=== PATIENT | male | born 1955 | race Caucasian/White ===

== ENCOUNTER → 2016-08-25 | Outpatient (REF) | payer BC ==
[2016-08-25 10:17] LABS: ALBUMIN 3.9 GM/DL (3.2-5.2); ALKALINE PHOSPHATASE 78 U/L (45-117); ALT/SGPT 40 U/L (12-78); ANION GAP 8 MEQ/L (8-16); AST/SGOT 27 U/L (15-37); BILIRUBIN,TOTAL 0.4 MG/DL (0.2-1.0); BLOOD UREA NITROGEN 21 MG/DL (7-18); CALCIUM LEVEL 8.7 MG/DL (8.5-10.1); CARBON DIOXIDE LEVEL 26 MEQ/L (21-32); CHLORIDE LEVEL 103 MEQ/L (98-107); CHOLESTEROL LEVEL 125 MG/DL (<200); CREATININE FOR GFR 0.73 MG/DL (0.70-1.30); GLOMERULAR FILTRATION RATE > 60.0 (>56); GLUCOSE, FASTING 173 MG/DL (70-105); POTASSIUM SERUM 4.3 MEQ/L (3.5-5.1); SODIUM LEVEL 137 MEQ/L (136-145); TOTAL PROTEIN 6.9 GM/DL (6.4-8.2); TRIGLYCERIDES LEVEL 122 MG/DL (<150)
== END ==
LOC: M SFHCCLAY 08:42
PROVIDERS: ATTEND Nurse Practitioner
DX: E11.8 Type 2 diabetes mellitus with unspecified complications (principal); Z12.5 Encounter for screening for malignant neoplasm of prostate

== ENCOUNTER → 2016-08-31 | Outpatient (REF) | payer BC | LOC: M LAB REF 16:37 | PROVIDERS: ATTEND Surgery | DX: D48.5 Neoplasm of uncertain behavior of skin (principal) ==

== ENCOUNTER → 2017-03-02 | Outpatient (REF) | payer BC ==
[2017-03-02 17:17] LABS: ALBUMIN 3.8 GM/DL (3.2-5.2); ALBUMIN/GLOBULIN RATIO 1.15 (1.00-1.93); ALKALINE PHOSPHATASE 73 U/L (45-117); ALT/SGPT 35 U/L (12-78); ANION GAP 5 MEQ/L (8-16); AST/SGOT 29 U/L (7-37); BILIRUBIN,TOTAL 0.6 MG/DL (0.2-1.0); BLOOD UREA NITROGEN 18 MG/DL (7-18); CALCIUM LEVEL 8.5 MG/DL (8.5-10.1); CARBON DIOXIDE LEVEL 27 MEQ/L (21-32); CHLORIDE LEVEL 108 MEQ/L (98-107); CHOLESTEROL LEVEL 126 MG/DL (<200); CREATININE FOR GFR 0.69 MG/DL (0.70-1.30); FREE T4 0.84 NG/DL (0.76-1.46); GLOMERULAR FILTRATION RATE > 60.0 (>56); GLUCOSE, FASTING 104 MG/DL (70-105); POTASSIUM SERUM 4.2 MEQ/L (3.5-5.1); SODIUM LEVEL 140 MEQ/L (136-145); TOTAL PROTEIN 7.1 GM/DL (6.4-8.2); TRIGLYCERIDES LEVEL 100 MG/DL (<150)
== END ==
LOC: M SFHCCAPE 07:12
PROVIDERS: ATTEND Physician Assistant
DX: R94.6 Abnormal results of thyroid function studies (principal); E11.8 Type 2 diabetes mellitus with unspecified complications

== ENCOUNTER → 2018-02-11 | Outpatient (CLI) | payer BC | LOC: M SLEEP 19:28 | DX: G47.33 Obstructive sleep apnea (adult) (pediatric) (principal); G47.61 Periodic limb movement disorder | CPT/HCPCS: 95811 ==

== ENCOUNTER 2018-03-26 20:06 | Emergency (ER) | payer BC ==
[~2018-03-26] VITALS: Ht 172.7 cm; Wt 113.6 kg
[2018-03-26] MEDS ORDERED: LOSA50TA88 (20:24)
[2018-03-26] MEDS ORDERED: SIMV40TA2 (20:24)
[2018-03-26] MEDS ORDERED: FARX1TAB3 (20:24)
[2018-03-26] MEDS ORDERED: HUMA100I5 (20:24)
[2018-03-26] MEDS ORDERED: NAPR-885 PO (20:24)
[2018-03-26] MEDS ORDERED: TOUJ1.2I (20:24)
[2018-03-26] MEDS ORDERED: ZYRTTAB8 PO (20:24)
[2018-03-26] MEDS ORDERED: METF10004 (20:24)
[2018-03-26] MEDS ORDERED: CITA20TA4 (20:24)
[2018-03-26] MEDS ORDERED: BISO5TAB5 (20:24)
[2018-03-26] MEDS ORDERED: ELIQ5TAB (20:24)
[2018-03-26 20:54] LABS: BASO # 0.1 10^3/uL (0.0-0.2); BASO % 0.5 % (0.0-1.0); EOS # 0.2 10^3/uL (0.0-0.50); EOS % 1.9 % (0.0-3.0); HEMATOCRIT 41.2 % (42.0-52.0); HEMOGLOBIN 13.6 g/dl (13.5-17.5); LYMPH # 2.2 10^3/uL (1.5-4.5); LYMPH % 23.9 % (24.0-44.0); MEAN CORPUSCULAR HEMOGLOBIN 27.6 pg (27.0-33.0); MEAN CORPUSCULAR VOLUME 83.7 fl (80.0-96.0); MONO # 0.7 10^3/uL (0.0-0.8); MONO % 7.3 % (0.0-5.0); NEUTROPHILS # 6.1 10^3/uL (1.8-7.7); NEUTROPHILS % 65.9 % (36.0-66.0); PLATELET COUNT, AUTOMATED 284 10^3/uL (150-450); RED BLOOD COUNT 4.92 10^6/uL (4.30-6.10); WHITE BLOOD COUNT 9.3 10^3/uL (4.0-10.0)
[2018-03-26 21:12] LABS: BLOOD UREA NITROGEN 25 MG/DL (7-18); CALCIUM LEVEL 8.6 MG/DL (8.8-10.2); CARBON DIOXIDE LEVEL 24 MEQ/L (21-32); CHLORIDE LEVEL 108 MEQ/L (98-107); CPK CREATINE PHOSPHOKINASE 206 U/L (39-308); CREATININE FOR GFR 0.85 MG/DL (0.70-1.30); FREE T4 0.91 NG/DL (0.76-1.46); GLOMERULAR FILTRATION RATE > 60.0 (>49); GLUCOSE, FASTING 168 MG/DL (70-100); MAGNESIUM LEVEL 2.1 MG/DL (1.8-2.4); MB/CK RELATIVE INDEX 1.41 (< OR =4); POTASSIUM SERUM 4.1 MEQ/L (3.5-5.1); SODIUM LEVEL 141 MEQ/L (136-145); TROPONIN I 0.02 NG/ML (< 0.10)
[2018-03-26 22:45] VITALS: BP 121/69
--- NOTE | 2018-03-27 08:44 | ECGEPIP ---
Stationary ECG Study [facility] - ED Test Date: 2018-03-26 Pat Name: BRYN TERRAZAS Department: Room: - Gender: M Senior Accounting Specialist: william : 1955 Requested By: JOE Lombardi Order Number: [id number] Reading MD: Laisha Stacy Measurements Intervals [place] Rate: 86 P: 1 [place]: 138 QRS: 0 QRSD: 88 T: 10 QT: 334 QTc: 400 Interpretive Statements SINUS RHYTHM MODERATE VOLTAGE CRITERIA FOR LVH, CONSIDER NORMAL VARIANT NSTTW ABNORMALITY Electronically Signed On 03-27-2018 8:43:57 EST by Laisha Stacy
== END 2018-03-26 23:05 | disposition home or self-care (01) ==
LOC: M ED 20:06
DX: R00.2 Palpitations (principal); I48.91 Unspecified atrial fibrillation; Z88.0 Allergy status to penicillin; Z88.8 Allergy status to other drugs, medicaments and biological substances; Z79.899 Other long term (current) drug therapy; Z79.01 Long term (current) use of anticoagulants; Z79.4 Long term (current) use of insulin

== ENCOUNTER 2018-06-02 07:39 | Day surgery (SDC) | payer BC ==
[~2018-06-02] VITALS: Ht 172.7 cm; Wt 107.0 kg
[~2018-06-02 07:39] MED LIST: BISO5TAB5; CITA20TA4; ELIQ5TAB; FARX1TAB3; HUMA100I5; LOSA50TA88; METF10004; NAPR-885 PO; NS 1,000 ML IV ONE; PROPOFOL 200 MG/20 ML VIAL As Ordered ONE; SIMV40TA2; TOUJ1.2I; ZYRTTAB8 PO
[2018-06-02 09:40] VITALS: BP 133/75
--- NOTE | 2018-06-02 10:56 | ROOR ---
Patient Name: Wilber Fofana Procedure Date: 06/02/2018 8:55 AM Date of : 1955 Age: 62 Room: [facility] Gender: Male Note Status: Finalized Procedure: Colonoscopy Indications: Screening in patient at increased risk: Family history of 1st-degree relative with colorectal cancer Providers: Mo Pool Jr, MD Referring MD: JOHNATHAN RANDHAWA JR, MD Requesting Provider: Medicines: Propofol per Anesthesia Complications: No immediate complications. Procedure: Pre-Anesthesia Assessment: - Prior to the procedure, a History and Physical was performed, and patient medications and allergies were reviewed. The patient is competent. The risks and benefits of the procedure and the sedation options and risks were discussed with the patient. All questions were answered and informed consent was obtained. Patient identification and proposed procedure were verified by the physician and the nurse in the pre-procedure area and in the procedure room. Mental Status Examination: alert and oriented. Airway Examination: normal oropharyngeal airway and neck mobility. Respiratory Examination: clear to auscultation. CV Examination: normal. ASA Grade Assessment: II - A patient with mild systemic disease. After reviewing the risks and benefits, the patient was deemed in satisfactory condition to undergo the procedure. The anesthesia plan was to use moderate sedation / analgesia (conscious sedation). Immediately prior to administration of medications, the patient was re-assessed for adequacy to receive sedatives. The heart rate, respiratory rate, oxygen saturations, blood pressure, adequacy of pulmonary ventilation, and response to care were monitored throughout the procedure. The physical status of the patient was re-assessed after the procedure. The Colonoscope was introduced through the anus and advanced to the cecum, identified by appendiceal orifice and ileocecal valve. The colonoscopy was performed without difficulty. The patient tolerated the procedure well. The quality of the bowel preparation was adequate. Findings: The rectum, descending colon, transverse colon, cecum, appendiceal orifice and ileocecal valve appeared normal. Five polyps were found in the recto-sigmoid colon, sigmoid colon and ascending colon. The polyps were small in size. These polyps were removed with a cold snare. Resection and retrieval were complete. Impression: - The rectum, descending colon, transverse colon, cecum, appendiceal orifice and ileocecal valve are normal. - Five small polyps at the recto-sigmoid colon, in the sigmoid colon and in the ascending colon, removed with a cold snare. Resected and retrieved. Recommendation: - Discharge patient to home (ambulatory). - Repeat colonoscopy in 5 years for surveillance. Mo Pool MD Mo Pool Jr, MD 06/02/2018 9:20:16 AM This report has been signed electronically. Number of Addenda: 0 Note Initiated On: 06/02/2018 8:55 AM Estimated Blood Loss: Estimated blood loss: none.
== END 2018-06-02 09:49 | disposition home or self-care (01) ==
LOC: M OPP 07:39
PROVIDERS: ATTEND Surgery
DX: Z12.11 Encounter for screening for malignant neoplasm of colon (principal); Z80.0 Family history of malignant neoplasm of digestive organs; D12.7 Benign neoplasm of rectosigmoid junction; D12.5 Benign neoplasm of sigmoid colon; D12.2 Benign neoplasm of ascending colon; I48.91 Unspecified atrial fibrillation; G47.30 Sleep apnea, unspecified; Z79.899 Other long term (current) drug therapy; Z79.4 Long term (current) use of insulin; Z88.0 Allergy status to penicillin; Z88.8 Allergy status to other drugs, medicaments and biological substances

== ENCOUNTER → 2018-12-28 | Outpatient (REF) | payer BC ==
[~2018-12-28] MED LIST changes: -BISO5TAB5; +BISO5TAB9; -CITA20TA4; +CITA20TA6; -NS 1,000 ML IV ONE; -PROPOFOL 200 MG/20 ML VIAL As Ordered ONE
[2018-12-28 12:35] LABS: HEMATOCRIT 44.7 % (42.0-52.0)
[2018-12-28 13:14] LABS: FERRITIN 199 NG/ML (26-388); IRON (FE) 145 UG/DL (65-175); PERCENT SATURATION 45.2 % (19.7-50.0); TOTAL IRON BINDING CAPACITY 321 UG/DL (250-450)
[2018-12-28 13:30] LABS: HEPATITIS B SURFACE ANTIGEN NEGATIVE (NEGATIVE)
[2018-12-28 13:57] LABS: HEPATITIS C VIRUS ABY INDEX 0.2 INDEX (<0.8)
[2018-12-28 13:58] LABS: HEPATITIS B CORE ANTIBODY IGM NEGATIVE (NEGATIVE)
[2018-12-28 14:00] LABS: HEPATITIS A ANTIBODY IGM NEGATIVE (NEGATIVE)
== END ==
LOC: M LAB REF 12:09
PROVIDERS: ATTEND Nurse Practitioner Adult Health
DX: R79.89 Other specified abnormal findings of blood chemistry (principal)

== ENCOUNTER → 2020-02-21 | Outpatient (REF) | payer OTHER ==
[~2020-02-21] MED LIST changes: +BISO5TAB14; -BISO5TAB9; -SIMV40TA2; +SIMV40TA20
== END ==
LOC: M LAB REF 11:49
PROVIDERS: ATTEND Nurse Practitioner Adult Health
DX: L02.212 Cutaneous abscess of back [any part, except buttock and flank] (principal)

== ENCOUNTER 2021-01-01 12:20 | Outpatient (CLI) | payer BC, OTHER ==
[~2021-01-01] VITALS: Ht 172.7 cm; Wt 113.4 kg
[~2021-01-01 12:20] MED LIST changes: +ALBUTEROL 90 MCG/ACT 8GM HFA INHALER INH PRN; +ALBUTEROL SULFATE 2.5 MG/0.5 ML INH NEB SOLN INH PRN; +EPINEPHrine INJ 1 MG/ML 1ML AMP IM PRN; +NS 1,000 ML IV SCH; +diphenhydrAMINE 50MG/ML VIAL (J1200) IV PRN; +methylPREDNISolone 125MG 2ML VIAL IV PRN
[2021-01-01 12:50] VITALS: BP 148/69
[2021-01-01 13:27] VITALS: BP 148/69
[2021-01-01 13:57] VITALS: BP 158/67
[2021-01-01] MEDS ORDERED: diphenhydrAMINE 25MG CAP PO ONE (14:00)
[2021-01-01] MEDS ORDERED: BAMLANIVIMAB 700 MG, ETESEVIMAB 1,400 MG in NS 250 ML IV ONE (14:00)
[2021-01-01] MEDS ORDERED: ACETAMINOPHEN TAB 650MG DOSE (2X325MG) PO ONE (14:00)
[2021-01-01] MEDS ORDERED: diphenhydrAMINE 50MG CAP PO ONE (14:00)
[2021-01-01 14:27] VITALS: BP 163/71
[2021-01-01 15:40] VITALS: BP 152/68
== END 2021-01-01 15:40 | disposition home or self-care (01) ==
LOC: M OPCLI4PR 12:20
PROVIDERS: ATTEND Internal Medicine
DX: U07.1 COVID-19 (principal); Z88.0 Allergy status to penicillin; Z88.1 Allergy status to other antibiotic agents

== ENCOUNTER 2021-03-04 09:33 | Emergency (ER) | payer BC ==
[~2021-03-04] VITALS: Ht 172.7 cm; Wt 113.6 kg
[~2021-03-04 09:33] MED LIST changes: -ALBUTEROL 90 MCG/ACT 8GM HFA INHALER INH PRN; -ALBUTEROL SULFATE 2.5 MG/0.5 ML INH NEB SOLN INH PRN; -EPINEPHrine INJ 1 MG/ML 1ML AMP IM PRN; -NS 1,000 ML IV SCH; -diphenhydrAMINE 50MG/ML VIAL (J1200) IV PRN; -methylPREDNISolone 125MG 2ML VIAL IV PRN
[2021-03-04] MEDS ORDERED: OZEM2INJ SC (10:20)
[2021-03-04] MEDS ORDERED: DIGOXIN INJ 0.5 MG/2 ML AMP (J1160) IV ONE (10:40)
[2021-03-04 10:57] LABS: HEMOGLOBIN 13.8 g/dl (13.5-17.5); MEAN CORPUSCULAR HEMOGLOBIN 26.6 pg (27.0-33.0); MEAN CORPUSCULAR HGB CONC 31.4 g/dl (32.0-36.5); MEAN CORPUSCULAR VOLUME 84.9 fl (80.0-96.0); PLATELET COUNT, AUTOMATED 230 10^3/uL (150-450); RED BLOOD COUNT 5.18 10^6/uL (4.30-6.10); WHITE BLOOD COUNT 10.6 10^3/uL (4.0-10.0)
[2021-03-04 11:08] LABS: BLOOD UREA NITROGEN 23 MG/DL (7-18); CARBON DIOXIDE LEVEL 26 MEQ/L (21-32); CHLORIDE LEVEL 107 MEQ/L (98-107); CREATININE FOR GFR 1.08 MG/DL (0.70-1.30); GLOMERULAR FILTRATION RATE > 60.0 (>49); GLUCOSE, FASTING 227 MG/DL (70-100); POTASSIUM SERUM 4.8 MEQ/L (3.5-5.1); SODIUM LEVEL 139 MEQ/L (136-145)
[2021-03-04] MEDS ORDERED: ISOVUE-370 76% 100ML VIAL As Ordered ONE (11:37)
--- NOTE | 2021-03-04 11:56 | REP ---
INDICATION: recent COVID, r/o PE COMPARISON: None. TECHNIQUE: Axial contrast enhanced images from the thoracic inlet to the upper abdomen using pulmonary embolus technique with multiplanar re-formations. 75 ml Isovue 370 intravenous contrast material administered without complication. This CT examination was performed using the following dose reduction techniques: Automated exposure control, adjustment of mA and/or kv according to the patient's size, and use of iterative reconstruction technique. FINDINGS: Satisfactory enhancement of the pulmonary vasculature is achieved and no filling defects are identified to suggest pulmonary embolus. Further evaluation of the mediastinum demonstrates mild atherosclerotic changes to the thoracic aorta and coronary arteries without aortic aneurysm or dissection. No cardiomegaly or pericardial effusion. The lung morel demonstrate minimal scattered chronic changes and very subtle dependent changes. No consolidation. No effusion. Calcified right hilar lymph node suggest prior granulomatous disease. No acute adenopathy. Tracheobronchial tree is patent. Surrounding musculoskeletal structures demonstrate age-related degenerative changes. IMPRESSION: 1. No evidence for pulmonary embolus. 2. Minimal chronic changes. 3. No acute mediastinal or pleuroparenchymal process appreciated. <Electronically signed by Keith Flores > 03/04/21 1628
[2021-03-04 14:15] VITALS: BP 138/70
--- NOTE | 2021-03-05 16:00 | ECGEPIP ---
[facility] - ED Test Date: 2021-03-04 Pat Name: BRYN TERRAZAS Department: Room: - Gender: Male School Supervisor: DEJUAN : 1955 Requested By: Fercho Mike Order Number: [id number] Reading MD: Surjit Gómez Measurements Intervals [place] Rate: 144 P: [place]: QRS: 3 QRSD: 74 T: -9 QT: 294 QTc: 455 Interpretive Statements Supraventricular tachycardia Minimal voltage criteria for LVH, may be normal variant Similar to tracing done 02-20-15 Electronically Signed on 03-05-2021 16:00:19 EST by Surjit Gómez
== END 2021-03-04 14:21 | disposition home or self-care (01) ==
LOC: M ED 09:33
DX: I48.0 Paroxysmal atrial fibrillation (principal); E11.9 Type 2 diabetes mellitus without complications; I10 Essential (primary) hypertension; E78.5 Hyperlipidemia, unspecified; F41.9 Anxiety disorder, unspecified; G47.33 Obstructive sleep apnea (adult) (pediatric); Z99.89 Dependence on other enabling machines and devices; Z79.899 Other long term (current) drug therapy; Z79.4 Long term (current) use of insulin; Z79.01 Long term (current) use of anticoagulants; Z88.0 Allergy status to penicillin; Z88.8 Allergy status to other drugs, medicaments and biological substances
CPT/HCPCS: 71275; 80048; 84443; 84484; 85027; 93005; 93041; 94760; 96374; 99285; J1160; Q9967

== ENCOUNTER → 2021-10-06 | Outpatient (CLI) | payer BC ==
[~2021-10-06] MED LIST changes: +LOSA50TA28; -LOSA50TA88; +OZEM2INJ SC
[2021-10-06 10:54] LABS: BLOOD UREA NITROGEN 17 MG/DL (7-18); CALCIUM LEVEL 8.9 MG/DL (8.8-10.2); CARBON DIOXIDE LEVEL 25 MEQ/L (21-32); CHLORIDE LEVEL 107 MEQ/L (98-107); CREATININE FOR GFR 0.83 MG/DL (0.70-1.30); GLOMERULAR FILTRATION RATE > 60.0 (>49); GLUCOSE, FASTING 186 MG/DL (70-100); POTASSIUM SERUM 4.4 MEQ/L (3.5-5.1); SODIUM LEVEL 138 MEQ/L (136-145)
== END ==
LOC: M WUC 08:22
PROVIDERS: ATTEND Internal Medicine Cardiovascular Disease
DX: I48.0 Paroxysmal atrial fibrillation (principal)

== ENCOUNTER → 2022-01-29 | Outpatient (REF) | payer BC | LOC: M LAB REF 12:21 | PROVIDERS: ATTEND Nurse Practitioner Adult Health | DX: D64.9 Anemia, unspecified (principal) ==

== ENCOUNTER → 2022-02-13 | Outpatient (CLI) | payer BC ==
[2022-02-13 17:36] LABS: BASO # 0.1 10^3/uL (0.0-0.2); BASO % 0.6 % (0.0-1.0); EOS # 0.2 10^3/uL (0.0-0.5); EOS % 2.1 % (0.0-3.0); HEMATOCRIT 31.2 % (42.0-52.0); LYMPH # 1.7 10^3/uL (1.5-5.0); LYMPH % 21.3 % (24.0-44.0); MEAN CORPUSCULAR HEMOGLOBIN 22.4 pg (27.0-33.0); MEAN CORPUSCULAR HGB CONC 28.8 g/dl (32.0-36.5); MEAN CORPUSCULAR VOLUME 77.8 fl (80.0-96.0); MONO # 0.7 10^3/uL (0.0-0.8); MONO % 9.6 % (2.0-8.0); NEUTROPHILS # 5.1 10^3/uL (1.5-8.5); NEUTROPHILS % 66.1 % (36.0-66.0); PLATELET COUNT, AUTOMATED 229 10^3/uL (150-450); RED BLOOD COUNT 4.01 10^6/uL (4.30-6.10); WHITE BLOOD COUNT 7.7 10^3/uL (4.0-10.0)
[2022-02-13 19:28] LABS: IRON (FE) 21 UG/DL (65-175)
[2022-02-13 19:29] LABS: PERCENT SATURATION 4.6 % (19.7-50.0); TOTAL IRON BINDING CAPACITY 459 UG/DL (250-425)
[2022-02-13 19:30] LABS: ALBUMIN 3.8 G/DL (3.2-5.2); ALKALINE PHOSPHATASE 71 U/L (46-116); ALT/SGPT 45 U/L (7.0-40); AST/SGOT 47 U/L (<34); BILIRUBIN,TOTAL 0.3 MG/DL (0.3-1.2); BLOOD UREA NITROGEN 19 MG/DL (9-23); CALCIUM LEVEL 8.8 MG/DL (8.3-10.6); CARBON DIOXIDE LEVEL 25 MMOL/L (20-31); CHLORIDE LEVEL 105 MMOL/L (98-107); FERRITIN 5.5 NG/ML (10.5-307.3); FOLATE 13.01 NG/ML (>5.4); GLOMERULAR FILTRATION RATE > 60.0 (>49); GLUCOSE, FASTING 159 MG/DL (74-106); POTASSIUM SERUM 4.2 MMOL/L (3.5-5.1); SODIUM LEVEL 139 MMOL/L (136-145); THYROID STIMULATING HORMONE 2.442 uIU/ML (0.55-4.78); TOTAL PROTEIN 6.9 G/DL (5.7-8.2); VITAMIN B12 LEVEL 469 PG/ML (211-911)
[2022-02-13 20:40] LABS: FREE T4 0.81 NG/DL (0.89-1.76)
== END ==
LOC: M WUC 14:55
PROVIDERS: ATTEND Physician Assistant
DX: I10 Essential (primary) hypertension (principal); R53.83 Other fatigue

== ENCOUNTER 2022-02-28 09:45 | Emergency (ER) | payer BC ==
[~2022-02-28] VITALS: Ht 172.7 cm; Wt 111.6 kg
[~2022-02-28 09:45] MED LIST changes: -HUMA100I5; +HUMA100I5 SC; -TOUJ1.2I; +TOUJ1.2I SC
[2022-02-28] MEDS ORDERED: NS 500 ML IV ONE (10:10)
[2022-02-28] MEDS ORDERED: DIGOXIN INJ 0.5 MG/2 ML AMP IV STA (10:16)
[2022-02-28 10:29] LABS: BASO # 0.1 10^3/uL (0.0-0.2); BASO % 0.8 % (0.0-1.0); EOS # 0.1 10^3/uL (0.0-0.5); EOS % 1.3 % (0.0-3.0); HEMATOCRIT 34.4 % (42.0-52.0); HEMOGLOBIN 9.8 g/dl (13.5-17.5); LYMPH # 1.4 10^3/uL (1.5-5.0); LYMPH % 14.6 % (24.0-44.0); MEAN CORPUSCULAR HEMOGLOBIN 22.6 pg (27.0-33.0); MEAN CORPUSCULAR HGB CONC 28.5 g/dl (32.0-36.5); MEAN CORPUSCULAR VOLUME 79.4 fl (80.0-96.0); MONO # 0.6 10^3/uL (0.0-0.8); MONO % 6.4 % (2.0-8.0); NEUTROPHILS # 7.1 10^3/uL (1.5-8.5); NEUTROPHILS % 76.4 % (36.0-66.0); PLATELET COUNT, AUTOMATED 231 10^3/uL (150-450); RED BLOOD COUNT 4.33 10^6/uL (4.30-6.10); WHITE BLOOD COUNT 9.3 10^3/uL (4.0-10.0)
[2022-02-28 10:39] LABS: INR 1.18; PROTHROMBIN TIME 15.3 SECONDS (12.5-14.5)
[2022-02-28 10:40] LABS: CK-MB VALUE MASS 1.6 NG/ML (<3.6); LIPASE 32 U/L (12-53); PARTIAL THROMBOPLASTIN TIME 29.9 SECONDS (24.8-34.2)
[2022-02-28 10:42] LABS: ALBUMIN 3.6 G/DL (3.2-5.2); ALKALINE PHOSPHATASE 80 U/L (46-116); ALT/SGPT 44 U/L (7.0-40); AST/SGOT 48 U/L (<34); BILIRUBIN,DIRECT 0.2 MG/DL (<0.4); BILIRUBIN,TOTAL 0.5 MG/DL (0.3-1.2); BLOOD UREA NITROGEN 18 MG/DL (9-23); CALCIUM LEVEL 8.3 MG/DL (8.3-10.6); CARBON DIOXIDE LEVEL 20 MMOL/L (20-31); CHLORIDE LEVEL 107 MMOL/L (98-107); CPK CREATINE PHOSPHOKINASE 207 U/L (46-171); CREATININE FOR GFR 0.88 MG/DL (0.70-1.30); GLOMERULAR FILTRATION RATE > 60.0 (>49); GLUCOSE, FASTING 204 MG/DL (74-106); MB/CK RELATIVE INDEX 0.77 (< OR =4); POTASSIUM SERUM 4.6 MMOL/L (3.5-5.1); SODIUM LEVEL 138 MMOL/L (136-145); TOTAL PROTEIN 7.1 G/DL (5.7-8.2)
[2022-02-28 10:43] LABS: FREE T4 0.82 NG/DL (0.89-1.76); THYROID STIMULATING HORMONE 3.363 uIU/ML (0.55-4.78)
[2022-02-28 10:50] LABS: RSV AMPLIFICATION NEGATIVE (NEGATIVE)
[2022-02-28] MEDS ORDERED: IRON65TA2 PO (10:59)
[2022-02-28] MEDS ORDERED: OMEP-173 PO (10:59)
[2022-02-28 11:33] LABS: CK-MB VALUE MASS 1.2 NG/ML (<3.6)
[2022-02-28 11:34] LABS: MB/CK RELATIVE INDEX 0.65 (< OR =4)
[2022-02-28 12:45] VITALS: BP 146/71
== END 2022-02-28 13:14 | disposition home or self-care (01) ==
LOC: M ED 09:45
DX: I48.91 Unspecified atrial fibrillation (principal); D64.9 Anemia, unspecified; Z88.0 Allergy status to penicillin; Z88.1 Allergy status to other antibiotic agents; Z88.8 Allergy status to other drugs, medicaments and biological substances; Z87.891 Personal history of nicotine dependence; Z79.01 Long term (current) use of anticoagulants; Z79.899 Other long term (current) drug therapy
CPT/HCPCS: 71045; 80048; 80076; 82550; 82553; 83690; 84439; 84443; 84484; 85025; 85610; 85730; 87631; 93005; 93041; 94760; 96361; 96374; 99285; J1160

== ENCOUNTER 2022-03-19 08:38 | Outpatient (CLI) | payer BC ==
[~2022-03-19] VITALS: Ht 172.7 cm; Wt 113.2 kg
[~2022-03-19 08:38] MED LIST changes: +IRON65TA2 PO; +OMEP-173 PO
[2022-03-19 08:54] VITALS: BP 130/61
[2022-03-19] MEDS ORDERED: IRON SUCROSE 475 MG in NS 250 ML IV ONE (09:00)
[2022-03-19] MEDS ORDERED: IRON SUCROSE 25 MG in NS 23.75 ML IV ONE (09:00)
[2022-03-19 12:30] VITALS: BP 141/74
[2022-03-19 13:26] VITALS: BP 153/69
== END 2022-03-19 13:30 | disposition home or self-care (01) ==
LOC: M INFU 08:38
PROVIDERS: ATTEND Nurse Practitioner Adult Health
DX: D50.9 Iron deficiency anemia, unspecified (principal); Z88.0 Allergy status to penicillin; Z88.1 Allergy status to other antibiotic agents; Z88.3 Allergy status to other anti-infective agents
CPT/HCPCS: 96365; 96366; J1756

== ENCOUNTER → 2022-03-29 | Outpatient (CLI) | payer BC | LOC: M LABSMTC 09:09 | PROVIDERS: ATTEND Anesthesiology | DX: Z01.812 Encounter for preprocedural laboratory examination (principal); Z11.52 Encounter for screening for COVID-19 ==

== ENCOUNTER 2022-04-02 11:09 | Day surgery (SDC) | payer BC ==
[~2022-04-02] VITALS: Ht 172.7 cm; Wt 108.4 kg
[~2022-04-02 11:09] MED LIST changes: +NS 1,000 ML IV ONE
[2022-04-02] MEDS ORDERED: LIDOCAINE 2% 100MG/5ML SDV (FOR ANES.) As Ordered ONE (12:15)
[2022-04-02] MEDS ORDERED: fentaNYL 100 MCG/2 ML INJECTION As Ordered ONE (12:46)
[2022-04-02] MEDS ORDERED: propofoL 200 MG/20 ML VIAL As Ordered ONE (12:47)
[2022-04-02 13:50] VITALS: BP 128/58
== END 2022-04-02 13:53 | disposition home or self-care (01) ==
LOC: M OPP 11:09
PROVIDERS: ATTEND Surgery
DX: K57.30 Diverticulosis of large intestine without perforation or abscess without bleeding (principal); D12.6 Benign neoplasm of colon, unspecified; D50.9 Iron deficiency anemia, unspecified; Z86.010 Personal history of colon polyps; K29.70 Gastritis, unspecified, without bleeding; K31.89 Other diseases of stomach and duodenum; Z79.02 Long term (current) use of antithrombotics/antiplatelets; Z79.4 Long term (current) use of insulin; Z79.899 Other long term (current) drug therapy; Z88.0 Allergy status to penicillin; Z88.1 Allergy status to other antibiotic agents; Z88.8 Allergy status to other drugs, medicaments and biological substances; E11.9 Type 2 diabetes mellitus without complications; G47.33 Obstructive sleep apnea (adult) (pediatric); E78.00 Pure hypercholesterolemia, unspecified; I48.91 Unspecified atrial fibrillation
CPT/HCPCS: 43239; 45385; 88305; J3010

== ENCOUNTER 2022-04-09 13:03 | Outpatient (CLI) | payer BC ==
[2022-04-09 14:15] VITALS: BP 121/59
[2022-04-09] MEDS ORDERED: ACETAMINOPHEN TAB 650MG DOSE (2X325MG) PO ONE (14:30)
[2022-04-09] MEDS ORDERED: diphenhydrAMINE 25MG CAP PO ONE (14:30)
[2022-04-09 14:46] VITALS: BP 121/59
[2022-04-09 15:00] VITALS: BP 124/58
[2022-04-09 16:00] VITALS: BP 136/60
[2022-04-09 16:42] VITALS: BP 172/72
[2022-04-09 18:00] VITALS: BP 149/66
== END 2022-04-09 16:01 ==
LOC: M INFU 13:03
PROVIDERS: ATTEND Internal Medicine
DX: D50.8 Other iron deficiency anemias (principal); Z88.0 Allergy status to penicillin; Z88.8 Allergy status to other drugs, medicaments and biological substances
CPT/HCPCS: 36430; P9016

== ENCOUNTER → 2022-04-09 | Outpatient (REF) | payer BC ==
[~2022-04-09] MED LIST changes: -NS 1,000 ML IV ONE
[2022-04-09 13:14] LABS: FERRITIN 7.8 NG/ML (10.5-307.3)
[2022-04-09 19:28] LABS: HEMATOCRIT 19.3 % (42.0-52.0)
== END ==
LOC: M LAB REF 12:12
PROVIDERS: ATTEND Internal Medicine
DX: D51.9 Vitamin B12 deficiency anemia, unspecified (principal); R06.00 Dyspnea, unspecified

== ENCOUNTER → 2022-04-09 | Outpatient (CLI) | payer BC | LOC: M LAB 12:26 | PROVIDERS: ATTEND Internal Medicine | DX: D50.0 Iron deficiency anemia secondary to blood loss (chronic) (principal) ==

== ENCOUNTER → 2022-04-12 | Outpatient (CLI) | payer BC | LOC: M LAB 10:05 | PROVIDERS: ATTEND Internal Medicine | DX: D50.0 Iron deficiency anemia secondary to blood loss (chronic) (principal) ==

== ENCOUNTER 2022-04-13 11:50 | Outpatient (CLI) | payer BC ==
[2022-04-13 11:35] VITALS: BP 118/59
[~2022-04-13 11:50] MED LIST changes: +ACETAMINOPHEN TAB 650MG DOSE (2X325MG) PO SCH; +diphenhydrAMINE 25MG CAP PO SCH
[2022-04-13 12:20] VITALS: BP 120/56
[2022-04-13 13:58] VITALS: BP 130/58
[2022-04-13 14:20] VITALS: BP 131/63
[2022-04-13 15:52] VITALS: BP 134/65
== END 2022-04-13 15:56 | disposition home or self-care (01) ==
LOC: M INFU 11:50
PROVIDERS: ATTEND Internal Medicine
DX: D64.89 Other specified anemias (principal); Z88.0 Allergy status to penicillin; Z88.8 Allergy status to other drugs, medicaments and biological substances
CPT/HCPCS: 36430; P9016

== ENCOUNTER → 2022-04-16 | Outpatient (REF) | payer BC ==
[~2022-04-16] MED LIST changes: -ACETAMINOPHEN TAB 650MG DOSE (2X325MG) PO SCH; -diphenhydrAMINE 25MG CAP PO SCH
== END ==
LOC: M LABSMTC 09:56
PROVIDERS: ATTEND Anesthesiology
DX: Z01.818 Encounter for other preprocedural examination (principal)

== ENCOUNTER → 2022-04-16 | Outpatient (CLI) | payer BC ==
[~2022-04-16] MED LIST changes: +ISOVUE-370 76% 100ML VIAL As Ordered ONE
== END ==
LOC: M RAD 12:48
PROVIDERS: ATTEND Internal Medicine
DX: R06.00 Dyspnea, unspecified (principal)

== ENCOUNTER 2022-04-20 12:56 | Day surgery (SDC) | payer BC ==
[~2022-04-20] VITALS: Ht 172.7 cm; Wt 108.9 kg
[~2022-04-20 12:56] MED LIST changes: -ISOVUE-370 76% 100ML VIAL As Ordered ONE; +NS 1,000 ML IV ONE
[2022-04-20] MEDS ORDERED: propofoL 200 MG/20 ML VIAL As Ordered ONE ×2 (13:56→13:57)
[2022-04-20] MEDS ORDERED: LIDOCAINE 2% 100MG/5ML SDV (FOR ANES.) As Ordered ONE (13:56)
[2022-04-20] MEDS ORDERED: fentaNYL 100 MCG/2 ML INJECTION As Ordered ONE (14:02)
[2022-04-20 14:37] VITALS: BP 155/74
== END 2022-04-20 14:49 | disposition home or self-care (01) ==
LOC: M OPP 12:56
PROVIDERS: ATTEND Internal Medicine Gastroenterology
DX: D50.0 Iron deficiency anemia secondary to blood loss (chronic) (principal); K31.89 Other diseases of stomach and duodenum; I85.00 Esophageal varices without bleeding; E11.9 Type 2 diabetes mellitus without complications; I48.91 Unspecified atrial fibrillation; E78.00 Pure hypercholesterolemia, unspecified; Z79.01 Long term (current) use of anticoagulants; Z79.02 Long term (current) use of antithrombotics/antiplatelets; Z79.4 Long term (current) use of insulin; Z79.899 Other long term (current) drug therapy; Z99.89 Dependence on other enabling machines and devices; G47.33 Obstructive sleep apnea (adult) (pediatric); Z86.79 Personal history of other diseases of the circulatory system; Z80.0 Family history of malignant neoplasm of digestive organs
CPT/HCPCS: 43270; J3010

== ENCOUNTER → 2022-04-22 | Outpatient (REF) | payer BC ==
[~2022-04-22] MED LIST changes: -NS 1,000 ML IV ONE
== END ==
LOC: M LAB REF 11:16
PROVIDERS: ATTEND Internal Medicine
DX: D50.9 Iron deficiency anemia, unspecified (principal)

== ENCOUNTER → 2022-04-28 | Outpatient (REF) | payer BC ==
[2022-04-28 16:31] LABS: INR 1.06
[2022-04-28 16:57] LABS: IRON (FE) 63 UG/DL (65-175); PERCENT SATURATION 15.9 % (19.7-50.0); TOTAL IRON BINDING CAPACITY 395 UG/DL (250-425)
[2022-04-28 17:04] LABS: FERRITIN 23.1 NG/ML (10.5-307.3)
[2022-04-28 17:38] LABS: HEPATITIS B CORE ANTIBODY IGM NEGATIVE (NEGATIVE); HEPATITIS B SURFACE ANTIGEN NEGATIVE (NEGATIVE); IMMUNOGLOBULIN A 332.1 MG/DL (40-350)
== END ==
LOC: M LAB REF 16:13
PROVIDERS: ATTEND Internal Medicine
DX: K74.60 Unspecified cirrhosis of liver (principal); K76.6 Portal hypertension

== ENCOUNTER → 2022-05-13 | Outpatient (CLI) | payer BC | LOC: M RAD 08:02 | PROVIDERS: ATTEND Internal Medicine Gastroenterology | DX: K74.60 Unspecified cirrhosis of liver (principal); K76.6 Portal hypertension ==

== ENCOUNTER → 2022-05-27 | Outpatient (CLI) | payer BC ==
[~2022-05-27] MED LIST changes: -BISO5TAB14; +BISO5TAB14 PO; -CITA20TA6; +CITA20TA6 PO; -ELIQ5TAB; +ELIQ5TAB PO; -FARX1TAB3; +FARX1TAB3 PO; -SIMV40TA20; +SIMV40TA20 PO
== END ==
LOC: M LABSMTC 09:36
PROVIDERS: ATTEND Anesthesiology
DX: Z01.818 Encounter for other preprocedural examination (principal); Z11.52 Encounter for screening for COVID-19

== ENCOUNTER 2022-06-01 13:17 | Day surgery (SDC) | payer BC ==
[~2022-06-01] VITALS: Ht 172.7 cm; Wt 107.5 kg
[~2022-06-01 13:17] MED LIST changes: +NS 1,000 ML IV ONE
[2022-06-01] MEDS ORDERED: propofoL 200 MG/20 ML VIAL As Ordered ONE (13:31)
[2022-06-01] MEDS ORDERED: LIDOCAINE 2% 100MG/5ML SDV (FOR ANES.) As Ordered ONE (13:31)
[2022-06-01] MEDS ORDERED: fentaNYL 100 MCG/2 ML INJECTION As Ordered ONE (13:32)
[2022-06-01] MEDS ORDERED: DEXTROSE 50% 50ML VIAL IV STA (14:40)
[2022-06-01] MEDS ORDERED: DEXTROSE 50% 50ML SYRINGE As Ordered ONE (14:47)
[2022-06-01] MEDS ORDERED: DEXTROSE 50% 50ML SYRINGE IV STA (14:50)
[2022-06-01 15:36] VITALS: BP 171/74
== END 2022-06-01 15:44 | disposition home or self-care (01) ==
LOC: M OPP 13:17
PROVIDERS: ATTEND Internal Medicine Gastroenterology
DX: K31.811 Angiodysplasia of stomach and duodenum with bleeding (principal); D50.9 Iron deficiency anemia, unspecified; E11.9 Type 2 diabetes mellitus without complications; G47.33 Obstructive sleep apnea (adult) (pediatric); I48.91 Unspecified atrial fibrillation; Z79.01 Long term (current) use of anticoagulants; Z79.02 Long term (current) use of antithrombotics/antiplatelets; Z79.4 Long term (current) use of insulin; Z79.899 Other long term (current) drug therapy; Z87.19 Personal history of other diseases of the digestive system; Z88.0 Allergy status to penicillin; Z88.1 Allergy status to other antibiotic agents; Z88.8 Allergy status to other drugs, medicaments and biological substances
CPT/HCPCS: 43255; J3010

== ENCOUNTER → 2022-06-22 | Outpatient (REF) | payer OTHER ==
[~2022-06-22] MED LIST changes: -NS 1,000 ML IV ONE
[2022-06-22 13:16] LABS: IRON (FE) 289 UG/DL (65-175); TOTAL IRON BINDING CAPACITY 366 UG/DL (250-425)
[2022-06-22 13:18] LABS: FERRITIN 25.6 NG/ML (10.5-307.3)
[2022-06-22 13:35] LABS: HEPATITIS B SURFACE ANTIGEN NEGATIVE (NEGATIVE)
[2022-06-22 13:55] LABS: HEPATITIS C VIRUS ABY INDEX 0.1 INDEX (<0.8)
[2022-06-22 13:56] LABS: HEPATITIS B CORE ANTIBODY IGM NEGATIVE (NEGATIVE)
== END ==
LOC: M LAB REF 12:41
PROVIDERS: ATTEND Internal Medicine
DX: K74.69 Other cirrhosis of liver (principal); D50.0 Iron deficiency anemia secondary to blood loss (chronic)

== ENCOUNTER → 2022-12-02 | Outpatient (REF) | payer OTHER ==
[2022-12-02 13:42] LABS: FERRITIN 16.7 NG/ML (10.5-307.3)
== END ==
LOC: M LAB REF 12:30
PROVIDERS: ATTEND Internal Medicine
DX: D50.0 Iron deficiency anemia secondary to blood loss (chronic) (principal)

== ENCOUNTER → 2023-05-27 | Outpatient (REF) | payer MEDICARE ==
[2023-05-27 12:43] LABS: PERCENT SATURATION 11.5 % (19.7-50.0)
== END ==
LOC: M LAB REF 12:00
PROVIDERS: ATTEND Internal Medicine
DX: R06.02 Shortness of breath (principal); R53.83 Other fatigue; Z86.39 Personal history of other endocrine, nutritional and metabolic disease

== ENCOUNTER → 2023-06-22 | Outpatient (CLI) | payer MEDICARE | LOC: M RAD 09:41 | PROVIDERS: ATTEND Internal Medicine | DX: K82.4 Cholesterolosis of gallbladder (principal) ==

== ENCOUNTER → 2023-10-14 | Outpatient (REF) | payer MEDICARE ==
[~2023-10-14] MED LIST changes: +SEMA1PEN2 SQ
[2023-10-14 14:08] LABS: FERRITIN 33.6 NG/ML (10.5-307.3)
[2023-10-14 14:45] LABS: HEPATITIS C VIRUS ABY INDEX < 0.02 INDEX (<0.8)
== END ==
LOC: M LAB REF 12:58
PROVIDERS: ATTEND Internal Medicine
DX: K74.69 Other cirrhosis of liver (principal)

== ENCOUNTER → 2023-10-19 | Day surgery (SDC) | payer MEDICARE ==
[~2023-10-19] VITALS: Ht 172.7 cm; Wt 106.6 kg
[~2023-10-19] MED LIST changes: +NS 1,000 ML IV ONE
== END | disposition home or self-care (01) ==
LOC: M OPP 10:46
PROVIDERS: ATTEND Internal Medicine Gastroenterology
DX: K31.811 Angiodysplasia of stomach and duodenum with bleeding (principal); Z53.09 Procedure and treatment not carried out because of other contraindication

== ENCOUNTER 2024-01-10 11:55 | Day surgery (SDC) | payer MEDICARE ==
[~2024-01-10] VITALS: Ht 172.7 cm; Wt 109.3 kg
[~2024-01-10 11:55] MED LIST changes: +CETI-24 PO; +LIDOCAINE 2% 100MG/5ML SDV (FOR ANES.) As Ordered ONE; -NS 1,000 ML IV ONE; +NS 250 ML IV ONE; +propofoL 200 MG/20 ML VIAL As Ordered ONE
[2024-01-10 14:48] VITALS: TEMP 97.5
[2024-01-10 15:03] VITALS: BP 144/69; O2SAT 93
== END 2024-01-10 15:11 | disposition home or self-care (01) ==
LOC: M OPP 11:55
PROVIDERS: ATTEND Internal Medicine Gastroenterology
DX: K31.819 Angiodysplasia of stomach and duodenum without bleeding (principal); D50.9 Iron deficiency anemia, unspecified; K74.60 Unspecified cirrhosis of liver; Z87.19 Personal history of other diseases of the digestive system; I48.91 Unspecified atrial fibrillation; E11.9 Type 2 diabetes mellitus without complications; G47.30 Sleep apnea, unspecified; Z79.899 Other long term (current) drug therapy; Z79.4 Long term (current) use of insulin; Z79.01 Long term (current) use of anticoagulants

== ENCOUNTER → 2024-02-21 | Outpatient (REF) | payer MEDICARE ==
[~2024-02-21] MED LIST changes: -LIDOCAINE 2% 100MG/5ML SDV (FOR ANES.) As Ordered ONE; -NS 250 ML IV ONE; -propofoL 200 MG/20 ML VIAL As Ordered ONE
== END ==
LOC: M LAB REF 16:50
PROVIDERS: ATTEND Internal Medicine
DX: K74.69 Other cirrhosis of liver (principal)

== ENCOUNTER → 2024-04-10 | Outpatient (CLI) | payer MEDICARE | LOC: M RAD 08:18 | PROVIDERS: ATTEND Internal Medicine | DX: K74.69 Other cirrhosis of liver (principal); K76.0 Fatty (change of) liver, not elsewhere classified ==

== ENCOUNTER → 2024-05-31 | Outpatient (CLI) | payer MEDICARE | LOC: M WUC 11:36 | PROVIDERS: ATTEND Nurse Practitioner Family | DX: R06.02 Shortness of breath (principal) ==

== ENCOUNTER → 2024-05-31 | Outpatient (REF) | payer MEDICARE ==
[2024-05-31 17:24] LABS: CK-MB VALUE MASS 3.1 NG/ML (<3.6)
[2024-05-31 17:26] LABS: MB/CK RELATIVE INDEX 0.9 (< OR =4)
== END ==
LOC: M LAB REF 15:27
PROVIDERS: ATTEND Nurse Practitioner Family
DX: R06.02 Shortness of breath (principal)

== ENCOUNTER 2024-06-21 20:04 | Emergency (ER) | payer MEDICARE ==
[2024-06-21 20:41] LABS: BASO % 0.6 % (0.0-1.0); EOS # 0.1 10^3/uL (0.0-0.5); EOS % 1.6 % (0.0-3.0); HEMATOCRIT 35.2 % (42.0-52.0); HEMOGLOBIN 10.7 g/dl (13.5-17.5); LYMPH # 1.3 10^3/uL (1.5-5.0); LYMPH % 19.9 % (24.0-44.0); MEAN CORPUSCULAR HEMOGLOBIN 23.5 pg (27.0-33.0); MEAN CORPUSCULAR HGB CONC 30.4 g/dl (32.0-36.5); MEAN CORPUSCULAR VOLUME 77.4 fl (80.0-96.0); MONO # 0.6 10^3/uL (0.0-0.8); MONO % 8.7 % (2.0-8.0); NEUTROPHILS # 4.6 10^3/uL (1.5-8.5); NEUTROPHILS % 69.1 % (36.0-66.0); PLATELET COUNT, AUTOMATED 177 10^3/uL (150-450); RED BLOOD COUNT 4.55 10^6/uL (4.30-6.10); WHITE BLOOD COUNT 6.7 10^3/uL (4.0-10.0)
[2024-06-21 20:59] LABS: CK-MB VALUE MASS 5.8 NG/ML (<3.6)
[2024-06-21 21:02] LABS: BLOOD UREA NITROGEN 14 MG/DL (9-23); CALCIUM LEVEL 8.8 MG/DL (8.3-10.6); CARBON DIOXIDE LEVEL 23 MMOL/L (20-31); CHLORIDE LEVEL 108 MMOL/L (98-107); CREATININE FOR GFR 0.71 MG/DL (0.70-1.30); GLOMERULAR FILTRATION RATE > 90.0 (>49); GLUCOSE, FASTING 242 MG/DL (74-106); MAGNESIUM LEVEL 2.2 MG/DL (1.8-2.4); POTASSIUM SERUM 4.4 MMOL/L (3.5-5.1); SODIUM LEVEL 139 MMOL/L (136-145)
[2024-06-21 21:06] LABS: CPK CREATINE PHOSPHOKINASE 400 U/L (46-171); MB/CK RELATIVE INDEX 1.45 (< OR =4)
[2024-06-21 21:53] LABS: CK-MB VALUE MASS 4.9 NG/ML (<3.6)
[2024-06-21 22:00] LABS: MB/CK RELATIVE INDEX 1.36 (< OR =4)
[2024-06-21] MEDS ORDERED: METO1TAB87 PO (22:25)
[2024-06-21 22:34] VITALS: BP 147/63; TEMP 96.6; O2SAT 97
[2024-06-21] MEDS: METOPROLOL TART 25 MG TABLET PO ONE (22:43)
== END 2024-06-21 22:48 | disposition home or self-care (01) ==
LOC: M ED 20:04
DX: I47.10 Supraventricular tachycardia, unspecified (principal); I48.91 Unspecified atrial fibrillation; E11.9 Type 2 diabetes mellitus without complications; Z79.4 Long term (current) use of insulin; G47.33 Obstructive sleep apnea (adult) (pediatric); Z79.01 Long term (current) use of anticoagulants; Z88.0 Allergy status to penicillin; Z88.1 Allergy status to other antibiotic agents; Z79.899 Other long term (current) drug therapy

== ENCOUNTER → 2024-06-26 | Outpatient (REF) | payer MEDICARE ==
[~2024-06-26] MED LIST changes: +METO1TAB87 PO
[2024-06-26 12:49] LABS: PERCENT SATURATION 4.8 % (19.7-50.0)
== END ==
LOC: M LAB REF 12:12
PROVIDERS: ATTEND Internal Medicine
DX: D64.9 Anemia, unspecified (principal)

== ENCOUNTER 2024-07-07 09:40 | Outpatient (CLI) | payer MEDICARE ==
[~2024-07-07] VITALS: Ht 172.7 cm; Wt 113.6 kg
[~2024-07-07 09:40] MED LIST changes: +ALBUTEROL SULFATE 2.5MG/0.5ML INH CONCENTRATE NEB SOLN INH PRN; +EPINEPHrine INJ 1 MG/ML 1ML AMP IM PRN; +diphenhydrAMINE 50MG/ML VIAL IV PRN; +methylPREDNISolone 125MG 2ML VIAL IV PRN
[2024-07-07 09:45] VITALS: BP 127/60; O2SAT 97
[2024-07-07] MEDS: NS IV ONE (10:17)
[2024-07-07] MEDS: IRON SUCROSE IV ONE (10:17)
[2024-07-07] MEDS: IRON SUCROSE COMPLEX IV ONE (10:17)
[2024-07-07 11:15] VITALS: BP 130/74; O2SAT 98
[2024-07-07 12:15] VITALS: BP 128/70; O2SAT 98
[2024-07-07 13:14] VITALS: BP 124/56; O2SAT 97
[2024-07-07 14:33] VITALS: BP 131/70; O2SAT 98
== END 2024-07-07 14:35 | disposition home or self-care (01) ==
LOC: M INFU 09:40
PROVIDERS: ATTEND Internal Medicine
DX: D50.0 Iron deficiency anemia secondary to blood loss (chronic) (principal)
CPT/HCPCS: 96365; 96366; J1756

== ENCOUNTER 2024-07-14 08:54 | Outpatient (CLI) | payer MEDICARE ==
[~2024-07-14] VITALS: Ht 172.7 cm; Wt 109.0 kg
[2024-07-14 09:19] VITALS: BP 162/72; O2SAT 95
[2024-07-14] MEDS: IRON SUCROSE IV ONE (09:35)
[2024-07-14] MEDS: IRON SUCROSE COMPLEX IV ONE (09:35)
[2024-07-14] MEDS: NS IV ONE (09:35)
[2024-07-14 10:45] VITALS: BP 134/63; O2SAT 97
[2024-07-14 11:45] VITALS: BP 139/70; O2SAT 98
[2024-07-14 12:45] VITALS: BP 133/71; O2SAT 99
[2024-07-14 13:32] VITALS: BP 142/87; O2SAT 97
== END 2024-07-14 13:30 ==
LOC: M INFU 08:54
PROVIDERS: ATTEND Internal Medicine
DX: D50.0 Iron deficiency anemia secondary to blood loss (chronic) (principal); Z88.0 Allergy status to penicillin; Z88.1 Allergy status to other antibiotic agents
CPT/HCPCS: 96365; 96366; J1756

== ENCOUNTER → 2024-07-19 | Outpatient (REF) | payer MEDICARE ==
[~2024-07-19] MED LIST changes: -ALBUTEROL SULFATE 2.5MG/0.5ML INH CONCENTRATE NEB SOLN INH PRN; -EPINEPHrine INJ 1 MG/ML 1ML AMP IM PRN; -diphenhydrAMINE 50MG/ML VIAL IV PRN; -methylPREDNISolone 125MG 2ML VIAL IV PRN
[2024-07-19 14:59] LABS: PERCENT SATURATION 28.6 % (19.7-50.0)
== END ==
LOC: M LAB REF 14:21
PROVIDERS: ATTEND Internal Medicine
DX: D50.9 Iron deficiency anemia, unspecified (principal)

== ENCOUNTER → 2024-10-02 | Outpatient (REF) | payer MEDICARE ==
[~2024-10-02] MED LIST changes: +METO25TA4 PO
[2024-10-02 15:48] LABS: IRON (FE) 23.0 UG/DL (65-175)
[2024-10-02 15:50] LABS: PERCENT SATURATION 6.3 % (19.7-50.0)
== END ==
LOC: M LAB REF 14:26
PROVIDERS: ATTEND Internal Medicine
DX: D50.9 Iron deficiency anemia, unspecified (principal)

== ENCOUNTER 2024-10-18 08:54 | Outpatient (CLI) | payer MEDICARE ==
[~2024-10-18] VITALS: Ht 172.7 cm; Wt 113.6 kg
[2024-10-18 09:25] VITALS: BP 129/60; O2SAT 98
[2024-10-18] MEDS ORDERED: NS (Normal Saline) 0.9% 250 ML IV ONE (09:45)
[2024-10-18] MEDS: ACETAMINOPHEN 650 MG PO ONE (09:57)
[2024-10-18 12:20] VITALS: BP 147/67; TEMP 98; O2SAT 96
[2024-10-18 13:30] VITALS: BP 138/66; TEMP 98; O2SAT 97
[2024-10-18 13:50] VITALS: BP 130/68; TEMP 98.6; O2SAT 95
[2024-10-18 14:41] VITALS: BP 139/65; TEMP 98.2; O2SAT 95
[2024-10-18 15:40] VITALS: BP 153/67; O2SAT 96
== END 2024-10-18 15:40 | disposition home or self-care (01) ==
LOC: M INFU 08:54
PROVIDERS: ATTEND Internal Medicine
DX: D50.9 Iron deficiency anemia, unspecified (principal); Z88.0 Allergy status to penicillin; Z88.1 Allergy status to other antibiotic agents
CPT/HCPCS: 36415; 36430; 86850; 86900; 86901; 86920; P9016

== ENCOUNTER → 2024-11-01 | Outpatient (REF) | payer MEDICARE ==
[2024-11-01 12:41] LABS: IRON (FE) 22 UG/DL (65-175)
[2024-11-01 12:42] LABS: PERCENT SATURATION 5.2 % (19.7-50.0)
== END ==
LOC: M LAB REF 12:08
PROVIDERS: ATTEND Internal Medicine
DX: K74.69 Other cirrhosis of liver (principal); D50.9 Iron deficiency anemia, unspecified

== ENCOUNTER → 2024-11-14 | Outpatient (CLI) | payer MEDICARE ==
[~2024-11-14] MED LIST changes: +FERR325T81 PO; +MAGN400T2 PO
== END ==
LOC: M LAB 13:59
PROVIDERS: ATTEND Internal Medicine
DX: D50.9 Iron deficiency anemia, unspecified (principal)

== ENCOUNTER 2024-11-15 13:00 | Outpatient (CLI) | payer MEDICARE ==
[~2024-11-15] VITALS: Ht 172.7 cm; Wt 113.9 kg
[2024-11-15 13:06] VITALS: BP 140/63; O2SAT 97
[2024-11-15] MEDS ORDERED: ACETAMINOPHEN 325 MG TAB PO ONE (13:30)
[2024-11-15 13:48] VITALS: BP 151/68; TEMP 98; O2SAT 96
[2024-11-15 14:48] VITALS: BP 151/70; TEMP 98.8; O2SAT 97
[2024-11-15 15:13] VITALS: BP 155/72; O2SAT 96
== END 2024-11-15 15:15 ==
LOC: M INFU 13:00
PROVIDERS: ATTEND Internal Medicine
DX: D50.9 Iron deficiency anemia, unspecified (principal); Z88.0 Allergy status to penicillin; Z88.1 Allergy status to other antibiotic agents
CPT/HCPCS: 36430; 86920; P9016

== ENCOUNTER 2024-11-16 10:55 | Day surgery (SDC) | payer MEDICARE ==
[~2024-11-16] VITALS: Ht 172.7 cm; Wt 107.6 kg
[2024-11-16] MEDS ORDERED: LIDOCAINE 2% 100 MG/5 ML SDV (FOR ANES.) As Ordered ONE (13:15)
[2024-11-16] MEDS ORDERED: GLYCOPYRROLATE INJ 0.2 MG/ML 2 ML VIAL As Ordered ONE (13:15)
[2024-11-16 14:38] VITALS: BP 159/70; TEMP 97.5; O2SAT 96
== END 2024-11-16 14:40 | disposition home or self-care (01) ==
LOC: M OPP 10:55
PROVIDERS: ATTEND Internal Medicine Gastroenterology
DX: D12.6 Benign neoplasm of colon, unspecified (principal); K55.20 Angiodysplasia of colon without hemorrhage; K57.30 Diverticulosis of large intestine without perforation or abscess without bleeding; K64.8 Other hemorrhoids; D50.9 Iron deficiency anemia, unspecified; Z79.01 Long term (current) use of anticoagulants; K31.819 Angiodysplasia of stomach and duodenum without bleeding; I85.00 Esophageal varices without bleeding; I48.91 Unspecified atrial fibrillation; G47.30 Sleep apnea, unspecified; Z88.0 Allergy status to penicillin; Z88.8 Allergy status to other drugs, medicaments and biological substances; Z79.4 Long term (current) use of insulin; Z79.84 Long term (current) use of oral hypoglycemic drugs; Z79.899 Other long term (current) drug therapy; Z87.891 Personal history of nicotine dependence
CPT/HCPCS: 43255; 45382; 45385; 88305; J1596; J3010

== ENCOUNTER → 2025-01-08 | Outpatient (REF) | payer MEDICARE ==
[2025-01-08 14:55] LABS: IRON (FE) 26.0 UG/DL (65-175); PERCENT SATURATION 6.1 % (19.7-50.0)
== END ==
LOC: M LAB REF 14:18
PROVIDERS: ATTEND Internal Medicine
DX: D50.9 Iron deficiency anemia, unspecified (principal)

== ENCOUNTER 2025-01-10 06:55 | Emergency (ER) | payer MEDICARE ==
[~2025-01-10] VITALS: Ht 172.7 cm; Wt 111.4 kg
[2025-01-10] MEDS ORDERED: METOPROLOL 5 MG/5 ML VIAL IV PRN (07:20)
[2025-01-10 07:23] LABS: BASO # 0.0 10^3/uL (0.0-0.2); BASO % 0.7 % (0.0-1.0); EOS # 0.1 10^3/uL (0.0-0.5); EOS % 2.5 % (0.0-3.0); LYMPH # 0.9 10^3/uL (1.5-5.0); LYMPH % 20.7 % (24.0-44.0); MONO # 0.5 10^3/uL (0.0-0.8); MONO % 12.3 % (2.0-8.0); NEUTROPHILS # 2.8 10^3/uL (1.5-8.5); NEUTROPHILS % 63.6 % (36.0-66.0); PLATELET COUNT, AUTOMATED 141 10^3/uL (150-450)
[2025-01-10] MEDS ORDERED: ADENOSINE 6 MG/2 ML INJECTION As Ordered ONE (07:23)
[2025-01-10] MEDS: ADENOSINE 6 MG/2 ML INJECTION IV STA (07:25)
[2025-01-10 07:43] LABS: CK-MB VALUE MASS 4.1 NG/ML (<3.6)
[2025-01-10 07:46] LABS: ALT/SGPT 42 U/L (7.0-40); AST/SGOT 67 U/L (<34); CALCIUM LEVEL 8.7 MG/DL (8.3-10.6); CARBON DIOXIDE LEVEL 21 MMOL/L (20-31); CHLORIDE LEVEL 108 MMOL/L (98-107); CREATININE FOR GFR 0.68 MG/DL (0.70-1.30); GLOMERULAR FILTRATION RATE > 90.0 (>49); POTASSIUM SERUM 4.1 MMOL/L (3.5-5.1); SODIUM LEVEL 142 MMOL/L (136-145)
[2025-01-10 08:09] LABS: INR 1.01
[2025-01-10 08:12] LABS: CPK CREATINE PHOSPHOKINASE 289 U/L (46-171); MB/CK RELATIVE INDEX 1.41 (< OR =4)
[2025-01-10 09:12] LABS: CPK CREATINE PHOSPHOKINASE 266.0 U/L (46-171)
[2025-01-10 09:16] LABS: CK-MB VALUE MASS 4.1 NG/ML (<3.6); MB/CK RELATIVE INDEX 1.54 (< OR =4)
[2025-01-10] MEDS ORDERED: HOME MED LIST COMPLETE! XX SCH (10:45)
[2025-01-10] MEDS ORDERED: METOPROLOL TART 25 MG TABLET PO ONE (10:55)
[2025-01-10 11:13] VITALS: BP 123/58
[2025-01-10] MEDS: METOPROLOL TART 12.5 MG PER 1/2 TAB PO ONE (11:13)
[2025-01-10 11:15] VITALS: BP 123/58; TEMP 97.5; O2SAT 96
== END 2025-01-10 11:20 | disposition home or self-care (01) ==
LOC: M ED 06:55
DX: I47.10 Supraventricular tachycardia, unspecified (principal); Z79.4 Long term (current) use of insulin; Z79.899 Other long term (current) drug therapy; Z88.0 Allergy status to penicillin; Z88.1 Allergy status to other antibiotic agents; Z88.8 Allergy status to other drugs, medicaments and biological substances
CPT/HCPCS: 71045; 80047; 80048; 80076; 82550; 82553; 83690; 83880; 84443; 84484; 85025; 85610; 85730; 93005; 93041; 94760; 96374; 99285; J0153

== ENCOUNTER 2025-01-17 09:55 | Outpatient (CLI) | payer MEDICARE ==
[~2025-01-17] VITALS: Ht 175.3 cm; Wt 113.6 kg
[~2025-01-17 09:55] MED LIST changes: +ALBUTEROL SULFATE 2.5 MG/0.5 ML INH CONCENTRATE NEB SOLN INH PRN; +EPINEPHrine INJ 1 MG/ML 1ML AMP IM PRN; +diphenhydrAMINE 50 MG/ML VIAL IV PRN
[2025-01-17 10:25] VITALS: BP 142/64; O2SAT 100
[2025-01-17] MEDS: IRON SUCROSE 500 MG in NS 250 ML IV ONE (10:48)
[2025-01-17 11:45] VITALS: BP 130/64; O2SAT 98
[2025-01-17 12:45] VITALS: BP 127/60; O2SAT 98
[2025-01-17 15:05] VITALS: BP 129/68; O2SAT 95
== END 2025-01-17 15:00 | disposition home or self-care (01) ==
LOC: M INFU 09:55
PROVIDERS: ATTEND Internal Medicine
DX: D50.9 Iron deficiency anemia, unspecified (principal); Z88.0 Allergy status to penicillin; Z88.1 Allergy status to other antibiotic agents; Z88.8 Allergy status to other drugs, medicaments and biological substances
CPT/HCPCS: 96365; 96366; J1756

== ENCOUNTER → 2025-01-22 | Outpatient (REF) | payer MEDICARE ==
[~2025-01-22] MED LIST changes: -ALBUTEROL SULFATE 2.5 MG/0.5 ML INH CONCENTRATE NEB SOLN INH PRN; -EPINEPHrine INJ 1 MG/ML 1ML AMP IM PRN; -diphenhydrAMINE 50 MG/ML VIAL IV PRN
[2025-01-22 15:14] LABS: IRON (FE) 39.0 UG/DL (65-175); PERCENT SATURATION 9.7 % (19.7-50.0)
== END ==
LOC: M LAB REF 14:23
PROVIDERS: ATTEND Internal Medicine
DX: D50.9 Iron deficiency anemia, unspecified (principal)

== ENCOUNTER → 2025-02-13 | Outpatient (REF) | payer MEDICARE ==
[2025-02-13 15:10] LABS: IRON (FE) 30.0 UG/DL (65-175); PERCENT SATURATION 8.1 % (19.7-50.0)
== END ==
LOC: M LAB REF 13:51
PROVIDERS: ATTEND Internal Medicine
DX: D50.9 Iron deficiency anemia, unspecified (principal)

== ENCOUNTER → 2025-03-14 | Outpatient (REF) | payer MEDICARE ==
[2025-03-14 13:13] LABS: IRON (FE) 22.0 UG/DL (65-175); PERCENT SATURATION 5.9 % (19.7-50.0)
== END ==
LOC: M LAB REF 12:21
PROVIDERS: ATTEND Internal Medicine
DX: D50.9 Iron deficiency anemia, unspecified (principal)